=== PATIENT | female | born 1945 | race Caucasian/White ===

== ENCOUNTER 2022-09-17 15:25 | Inpatient (IN) | payer OTHER, MEDICAID ==
[~2022-09-17] VITALS: Ht 170.2 cm; Wt 111.6 kg
[2022-09-17 15:33] VITALS: BP_SYST 120; PULSE 71; RESP 18; TEMP 101.4; O2SAT 94
[2022-09-17 15:53] LABS: BILIRUBIN,URINE NEGATIVE (NEGATIVE); BLOOD, URINE 3+ (NEGATIVE); CLARITY/URINE CLEAR (CLEAR); COLOR,URINE YELLOW (YELLOW); GLUCOSE,URINE NEGATIVE (NEGATIVE); KETONES,URINE NEGATIVE (NEGATIVE); LEUKOCYTE ESTERASE ,URINE TRACE (NEGATIVE); NITRITE, URINE POSITIVE (NEGATIVE); PROTEIN URINE TRACE (NEGATIVE); UROBILINOGEN,URINE 0.2 (0.2-1.0)
[2022-09-17] MEDS ORDERED: ZINC100T2 PO (15:59)
[2022-09-17] MEDS ORDERED: NEU300 PO (15:59)
[2022-09-17] MEDS ORDERED: DOCU-144 PO (15:59)
[2022-09-17] MEDS ORDERED: POLY17PO4 PO (15:59)
[2022-09-17] MEDS ORDERED: PERC10 PO ×2 (15:59)
[2022-09-17] MEDS ORDERED: LACT1TAB14 PO (15:59)
[2022-09-17] MEDS ORDERED: MELO-89 PO (15:59)
[2022-09-17] MEDS ORDERED: BISACODYL SUPP PR (15:59)
[2022-09-17] MEDS ORDERED: CYAN100010 PO (15:59)
[2022-09-17] MEDS ORDERED: ACET325T PO (15:59)
[2022-09-17] MEDS ORDERED: FERR236T3 PO (15:59)
[2022-09-17] MEDS ORDERED: FURO-150 PO (15:59)
[2022-09-17] MEDS ORDERED: ANT30 PO (15:59)
[2022-09-17] MEDS ORDERED: CYCL10TA24 PO (15:59)
[2022-09-17] MEDS ORDERED: VOLTAREN GEL TP (15:59)
[2022-09-17] MEDS ORDERED: ASCO500T20 PO (15:59)
[2022-09-17] MEDS ORDERED: POTA-197 PO (15:59)
[2022-09-17] MEDS ORDERED: IMAT400T7 PO (15:59)
[2022-09-17] MEDS ORDERED: DULCOLAX SUPP PR (15:59)
[2022-09-17] MEDS ORDERED: MOM PO (15:59)
[2022-09-17] MEDS ORDERED: LORA-258 PO (15:59)
[2022-09-17] MEDS ORDERED: MORP30TA59 PO (15:59)
[2022-09-17] MEDS ORDERED: ASPI-1393 PO (15:59)
[2022-09-17] MEDS ORDERED: TRAZ-250 PO (15:59)
[2022-09-17] MEDS ORDERED: DULO60CA42 PO (15:59)
[2022-09-17] MEDS ORDERED: METH85CR31 TP (15:59)
[2022-09-17] MEDS ORDERED: DRON400T PO (15:59)
[2022-09-17] MEDS ORDERED: LOPE2CAP PO (15:59)
[2022-09-17 16:05] LABS: BACTERIA,URINE MODERATE /HPF (None Seen); MUCUS,URINE None Seen /LPF (None Seen); RBC,URINE 20-50 /HPF (0-3)
[2022-09-17 16:39] LABS: BASOPHILS % (AUTO) 0.2 % (0.0-2.0); EOSINOPHILS % (AUTO) 0.1 % (0.0-4.0); HEMATOCRIT 31.3 % (36-48); HEMOGLOBIN 10.2 g/dL (12.0-16.0); LYMPHOCYTES # (AUTO) 0.6 K/uL (1.0-5.5); LYMPHOCYTES % (AUTO) 4.6 % (20.5-51.5); MEAN CORPUSCULAR HEMOGLOBIN 29 pg (27-31); MEAN CORPUSCULAR HGB CONC 33 % (32-36); MEAN CORPUSCULAR VOLUME 90 fL (79.0-98.0); MONOCYTES # (AUTO) 0.6 K/uL (0.0-1.0); MONOCYTES % (AUTO) 4.8 % (1.7-9.3); NEUTROPHILS # (AUTO) 10.9 K/uL (1.8-7.7); NEUTROPHILS % (AUTO) 90.3 % (40.0-70.0); PLATELET COUNT (AUTO) 209 K/uL (130-430); RED BLOOD CELL COUNT(AUTO) 3.49 MIL/uL (4.2-6.2); WHITE BLOOD COUNT (AUTO) 12.1 K/uL (4.8-10.8)
[2022-09-17 16:46] LABS: INR 1.1 (0.8-1.2); PROTHROMBIN TIME 10.9 SECS (9.5-12.5)
[2022-09-17 16:53] LABS: ALANINE AMINOTRANSFERASE 9 U/L (12-78); ALBUMIN 2.9 g/dL (3.4-4.8); AMYLASE 9 U/L (0-100); ANION GAP 8 (5-15); ASPARTATE AMINOTRANSFERASE 19 U/L (10-37); C-REACTIVE PROTEIN QUANT 8.9 mg/dL (0-0.5); CALCIUM 8.8 mg/dL (8.4-11.0); CHLORIDE 103 mmol/L (98-107); CREATININE 0.69 mg/dL (0.55-1.30); GLUCOSE 110 mg/dL (70-99); LIPASE 26 U/L (73-393); TOTAL BILIRUBIN 0.4 mg/dL (0.0-1.0); UREA NITROGEN, BLOOD 18 mg/dL (8-21)
[2022-09-17] MEDS ORDERED: cefTRIAXone 1 GM in LIDOCAINE 1%, 20 ML MDV 2.1 ML IM ONE (17:30)
[2022-09-17] MEDS ORDERED: D5/0.45 NS 1,000 ML IV ONE (18:15)
[2022-09-17 21:51] VITALS: BP_SYST 138; PULSE 88; RESP 18; TEMP 99.2
[2022-09-17] MEDS ORDERED: MILK OF MAGNESIA 30 ML UDC PO PRN (22:45)
[2022-09-17] MEDS ORDERED: DULCOLAX PR PRN (22:45)
[2022-09-17] MEDS ORDERED: LOPERAMIDE HCL 2 MG CAPSULE PO PRN (22:45)
[2022-09-17] MEDS ORDERED: VOLTAREN TP PRN (22:45)
[2022-09-17] MEDS ORDERED: BISACODYL 10 MG/SUPPOSITORY RC PRN (22:45)
[2022-09-17] MEDS ORDERED: MAG-AL HYDROX/SIMETH 30 ML UDC PO PRN (22:45)
[2022-09-17] MEDS ORDERED: LORazepam 1 MG TABLET PO PRN (22:45)
[2022-09-18] VITALS (8 sets, daily range): BP systolic 99–144; PULSE 82–87; RESP 16–20; TEMP 97–99.4; O2SAT 92–99
[2022-09-18] MEDS ORDERED: IMATINIB MESYLATE 400 MG PO SCH ×2 (09:00)
[2022-09-18] MEDS ORDERED: ONDANSETRON HCL 4 MG/2 ML VIAL IVP PRN (11:00)
[2022-09-18] MEDS ORDERED: LORazepam 2 MG/ML VIAL IVP PRN (11:00)
[2022-09-18] MEDS: DRONEDARONE HYDROCHLORIDE 400 MG TABLET PO SCH (11:14)
[2022-09-18] MEDS: POLYETHYLENE GLYCOL 3350, 17 GM/ POWD.PACK PO SCH (11:14)
[2022-09-18] MEDS: ASCORBIC ACID 500 MG TABLET PO SCH ×2 (11:15→20:50)
[2022-09-18] MEDS: FERROUS SULFATE 325 MG TABLET.DR PO SCH (11:15)
[2022-09-18] MEDS: LACTOBACILLUS RHAMNOSUS GG 1 CAP CAPSULE PO SCH (11:15)
[2022-09-18] MEDS: FUROSEMIDE 20 MG TABLET PO SCH (11:16)
[2022-09-18] MEDS: ASPIRIN 81 MG TABLET(ECOTRIN) PO SCH (11:17)
[2022-09-18] MEDS: MELOXICAM 7.5 MG TABLET PO SCH (11:17)
[2022-09-18] MEDS: CYCLOBENZAPRINE HCL 10 MG TABLET (FLEXERIL) PO SCH (11:18)
[2022-09-18] MEDS: DOCUSATE SODIUM 100 MG CAPSULE PO SCH (11:18)
[2022-09-18] MEDS: GABAPENTIN 300 MG CAPSULE PO SCH ×3 (11:19→20:50)
[2022-09-18] MEDS: POTASSIUM CHLORIDE 20 MEQ TAB.PRT.SR PO SCH (11:19)
[2022-09-18] MEDS: CYANOCOBALAMIN (VITAMIN B-12) 1,000 MCG TABLET PO SCH (11:19)
[2022-09-18] MEDS: cefTRIAXone 1 GM IVPB PREMIX 50 ML IV SCH (11:25)
[2022-09-18] MEDS: MORPHINE SULFATE 30 MG Immediate Release TABLET PO PRN ×2 (11:29→20:51)
[2022-09-18] MEDS: OXYCODONE/ACETAMINOPHEN *10*mg/325 mg TABLET PO PRN (15:31)
[2022-09-18] MEDS: NORMAL SALINE 5 ML DISP.SYRIN IVF SCH ×2 (15:37→20:52)
[2022-09-18] MEDS: traZODone HCL 50 MG TABLET (DESYREL) PO SCH (20:50)
[2022-09-18] MEDS: DULoxetine HCL 30 MG CAPSULE.DR (CYMBALTA) PO SCH (20:50)
[2022-09-19] VITALS (7 sets, daily range): BP systolic 92–141; PULSE 74–101; RESP 16–18; TEMP 96.4–98.6; O2SAT 95–96
[2022-09-19 06:54] LABS: BASOPHILS % (AUTO) 0.1 % (0.0-2.0); EOSINOPHILS # (AUTO) 0.1 K/uL (0.0-0.4); EOSINOPHILS % (AUTO) 0.8 % (0.0-4.0); HEMATOCRIT 26.3 % (36-48); HEMOGLOBIN 8.6 g/dL (12.0-16.0); LYMPHOCYTES # (AUTO) 0.8 K/uL (1.0-5.5); LYMPHOCYTES % (AUTO) 9.7 % (20.5-51.5); MEAN CORPUSCULAR HEMOGLOBIN 29 pg (27-31); MEAN CORPUSCULAR HGB CONC 33 % (32-36); MEAN CORPUSCULAR VOLUME 89 fL (79.0-98.0); MONOCYTES # (AUTO) 0.7 K/uL (0.0-1.0); NEUTROPHILS # (AUTO) 6.7 K/uL (1.8-7.7); NEUTROPHILS % (AUTO) 81.4 % (40.0-70.0); PLATELET COUNT (AUTO) 172 K/uL (130-430); RED BLOOD CELL COUNT(AUTO) 2.97 MIL/uL (4.2-6.2); RED CELL DISTRIBUTION WIDTH 16.2 % (9.0-15.0); WHITE BLOOD COUNT (AUTO) 8.3 K/uL (4.8-10.8)
[2022-09-19] MEDS: NORMAL SALINE 5 ML DISP.SYRIN IVF SCH ×2 (07:20→13:40)
[2022-09-19 07:22] LABS: ANION GAP 5 (5-15); C-REACTIVE PROTEIN QUANT 7.8 mg/dL (0-0.5); CALCIUM 7.8 mg/dL (8.4-11.0); CHLORIDE 100 mmol/L (98-107); CREATININE 0.57 mg/dL (0.55-1.30); GLUCOSE 96 mg/dL (70-99); UREA NITROGEN, BLOOD 14 mg/dL (8-21)
[2022-09-19 07:57] LABS: ERYTHROCYTE SEDIMENTATION RATE 27 MM/HR (0-20)
[2022-09-19] MEDS: MORPHINE SULFATE 30 MG Immediate Release TABLET PO PRN ×2 (08:43→16:54)
[2022-09-19] MEDS: POLYETHYLENE GLYCOL 3350, 17 GM/ POWD.PACK PO SCH (09:00)
[2022-09-19] MEDS: DOCUSATE SODIUM 100 MG CAPSULE PO SCH (09:00)
[2022-09-19] MEDS: ASCORBIC ACID 500 MG TABLET PO SCH ×2 (09:37→22:57)
[2022-09-19] MEDS: LACTOBACILLUS RHAMNOSUS GG 1 CAP CAPSULE PO SCH (09:37)
[2022-09-19] MEDS: FUROSEMIDE 20 MG TABLET PO SCH (09:38)
[2022-09-19] MEDS: CYANOCOBALAMIN (VITAMIN B-12) 1,000 MCG TABLET PO SCH (09:38)
[2022-09-19] MEDS: MELOXICAM 7.5 MG TABLET PO SCH (09:38)
[2022-09-19] MEDS: FERROUS SULFATE 325 MG TABLET.DR PO SCH (09:39)
[2022-09-19] MEDS: CYCLOBENZAPRINE HCL 10 MG TABLET (FLEXERIL) PO SCH (09:39)
[2022-09-19] MEDS: POTASSIUM CHLORIDE 20 MEQ TAB.PRT.SR PO SCH (09:39)
[2022-09-19] MEDS: ASPIRIN 81 MG TABLET(ECOTRIN) PO SCH (09:40)
[2022-09-19] MEDS: DRONEDARONE HYDROCHLORIDE 400 MG TABLET PO SCH (09:41)
[2022-09-19] MEDS ORDERED: IMATINIB MESYLATE 400 MG PO ONE (11:00)
[2022-09-19] MEDS: GABAPENTIN 300 MG CAPSULE PO SCH ×3 (11:50→22:57)
[2022-09-19] MEDS: IMATINIB MESYLATE 400 MG PO SCH (11:51)
[2022-09-19] MEDS: cefTRIAXone 1 GM IVPB PREMIX 50 ML IV SCH (11:52)
[2022-09-19] MEDS: CEFTAZIDIME 1 GM in D5W 50 ML IV SCH ×2 (13:38→22:58)
[2022-09-19] MEDS: VANCOMYCIN HCL 750 MG in NS 250 ML IV SCH (15:45)
[2022-09-19] MEDS: DULoxetine HCL 30 MG CAPSULE.DR (CYMBALTA) PO SCH (22:59)
[2022-09-19] MEDS: traZODone HCL 50 MG TABLET (DESYREL) PO SCH (22:59)
[2022-09-19] MEDS: OXYCODONE/ACETAMINOPHEN *10*mg/325 mg TABLET PO PRN (23:01)
[2022-09-20] VITALS: BP_SYST 107; PULSE 75; RESP 18; TEMP 98.1; O2SAT 93
[2022-09-20] MEDS: VANCOMYCIN HCL 750 MG in NS 250 ML IV SCH ×2 (02:37→14:33)
[2022-09-20] MEDS: NORMAL SALINE 5 ML DISP.SYRIN IVF SCH ×4 (02:37→21:48)
[2022-09-20 05:14] LABS: BASOPHILS % (AUTO) 0.4 % (0.0-2.0); EOSINOPHILS # (AUTO) 0.2 K/uL (0.0-0.4); EOSINOPHILS % (AUTO) 2.7 % (0.0-4.0); HEMATOCRIT 24.9 % (36-48); HEMOGLOBIN 8.3 g/dL (12.0-16.0); LYMPHOCYTES # (AUTO) 1.2 K/uL (1.0-5.5); LYMPHOCYTES % (AUTO) 16.6 % (20.5-51.5); MEAN CORPUSCULAR HEMOGLOBIN 29 pg (27-31); MEAN CORPUSCULAR HGB CONC 33 % (32-36); MEAN CORPUSCULAR VOLUME 89 fL (79.0-98.0); MONOCYTES # (AUTO) 0.8 K/uL (0.0-1.0); MONOCYTES % (AUTO) 10.1 % (1.7-9.3); NEUTROPHILS # (AUTO) 5.3 K/uL (1.8-7.7); NEUTROPHILS % (AUTO) 70.2 % (40.0-70.0); PLATELET COUNT (AUTO) 200 K/uL (130-430); RED BLOOD CELL COUNT(AUTO) 2.81 MIL/uL (4.2-6.2); RED CELL DISTRIBUTION WIDTH 16.5 % (9.0-15.0); WHITE BLOOD COUNT (AUTO) 7.5 K/uL (4.8-10.8)
[2022-09-20 05:46] LABS: ALANINE AMINOTRANSFERASE 14 U/L (12-78); ALBUMIN 2.3 g/dL (3.4-4.8); ANION GAP 3 (5-15); ASPARTATE AMINOTRANSFERASE 19 U/L (10-37); C-REACTIVE PROTEIN QUANT 7.5 mg/dL (0-0.5); CALCIUM 7.9 mg/dL (8.4-11.0); CHLORIDE 100 mmol/L (98-107); GLUCOSE 92 mg/dL (70-99); TOTAL BILIRUBIN 0.3 mg/dL (0.0-1.0); UREA NITROGEN, BLOOD 19 mg/dL (8-21)
[2022-09-20] MEDS: CEFTAZIDIME 1 GM in D5W 50 ML IV SCH ×3 (06:26→21:44)
[2022-09-20 06:55] LABS: ERYTHROCYTE SEDIMENTATION RATE 13 MM/HR (0-20)
[2022-09-20 08:00] VITALS: BP_SYST 127; PULSE 79; RESP 18; TEMP 96.8; O2SAT 94
[2022-09-20] MEDS: DRONEDARONE HYDROCHLORIDE 400 MG TABLET PO SCH (09:00)
[2022-09-20] MEDS: GABAPENTIN 300 MG CAPSULE PO SCH ×3 (09:27→20:32)
[2022-09-20] MEDS: ASPIRIN 81 MG TABLET(ECOTRIN) PO SCH (09:28)
[2022-09-20] MEDS: POTASSIUM CHLORIDE 20 MEQ TAB.PRT.SR PO SCH (09:28)
[2022-09-20] MEDS: MELOXICAM 7.5 MG TABLET PO SCH (09:28)
[2022-09-20] MEDS: CYANOCOBALAMIN (VITAMIN B-12) 1,000 MCG TABLET PO SCH (09:28)
[2022-09-20] MEDS: POLYETHYLENE GLYCOL 3350, 17 GM/ POWD.PACK PO SCH (09:29)
[2022-09-20] MEDS: ASCORBIC ACID 500 MG TABLET PO SCH ×2 (09:29→20:33)
[2022-09-20] MEDS: FUROSEMIDE 20 MG TABLET PO SCH (09:29)
[2022-09-20] MEDS: LACTOBACILLUS RHAMNOSUS GG 1 CAP CAPSULE PO SCH (09:29)
[2022-09-20] MEDS: DOCUSATE SODIUM 100 MG CAPSULE PO SCH (09:29)
[2022-09-20] MEDS: FERROUS SULFATE 325 MG TABLET.DR PO SCH (09:29)
[2022-09-20] MEDS: CYCLOBENZAPRINE HCL 10 MG TABLET (FLEXERIL) PO SCH (09:31)
[2022-09-20 11:27] VITALS: BP_SYST 108; PULSE 77; RESP 16; TEMP 96.3; O2SAT 93
[2022-09-20 15:28] VITALS: BP_SYST 110; PULSE 69; RESP 15; TEMP 97.7; O2SAT 94
[2022-09-20 20:30] VITALS: BP_SYST 116; PULSE 82; RESP 20; TEMP 97.7; O2SAT 95
[2022-09-20] MEDS: MORPHINE SULFATE 30 MG Immediate Release TABLET PO PRN (20:30)
[2022-09-20] MEDS: traZODone HCL 50 MG TABLET (DESYREL) PO SCH (20:31)
[2022-09-20] MEDS: DULoxetine HCL 30 MG CAPSULE.DR (CYMBALTA) PO SCH (20:33)
[2022-09-20 21:00] VITALS: O2SAT 95
[2022-09-21 02:32] VITALS: BP_SYST 136; PULSE 80; RESP 18; TEMP 97; O2SAT 94
[2022-09-21] MEDS: VANCOMYCIN HCL 750 MG in NS 250 ML IV SCH (02:44)
[2022-09-21] MEDS: MORPHINE SULFATE 30 MG Immediate Release TABLET PO PRN (04:25)
[2022-09-21] MEDS: CEFTAZIDIME 1 GM in D5W 50 ML IV SCH ×2 (05:06→15:31)
[2022-09-21 05:29] LABS: BASOPHILS % (AUTO) 0.4 % (0.0-2.0); EOSINOPHILS # (AUTO) 0.2 K/uL (0.0-0.4); EOSINOPHILS % (AUTO) 3.5 % (0.0-4.0); HEMATOCRIT 25.9 % (36-48); HEMOGLOBIN 8.6 g/dL (12.0-16.0); LYMPHOCYTES # (AUTO) 1.1 K/uL (1.0-5.5); LYMPHOCYTES % (AUTO) 18.6 % (20.5-51.5); MEAN CORPUSCULAR HEMOGLOBIN 29 pg (27-31); MEAN CORPUSCULAR HGB CONC 33 % (32-36); MEAN CORPUSCULAR VOLUME 88 fL (79.0-98.0); MONOCYTES # (AUTO) 0.4 K/uL (0.0-1.0); MONOCYTES % (AUTO) 7.6 % (1.7-9.3); NEUTROPHILS # (AUTO) 4.1 K/uL (1.8-7.7); NEUTROPHILS % (AUTO) 69.9 % (40.0-70.0); PLATELET COUNT (AUTO) 209 K/uL (130-430); RED BLOOD CELL COUNT(AUTO) 2.95 MIL/uL (4.2-6.2); RED CELL DISTRIBUTION WIDTH 16.1 % (9.0-15.0); WHITE BLOOD COUNT (AUTO) 5.8 K/uL (4.8-10.8)
[2022-09-21 05:35] LABS: ANION GAP 3 (5-15); C-REACTIVE PROTEIN QUANT 5.1 mg/dL (0-0.5); CHLORIDE 102 mmol/L (98-107); CREATININE 0.62 mg/dL (0.55-1.30); GLUCOSE 94 mg/dL (70-99); UREA NITROGEN, BLOOD 15 mg/dL (8-21)
[2022-09-21] MEDS: NORMAL SALINE 5 ML DISP.SYRIN IVF SCH ×2 (05:42→15:31)
[2022-09-21 07:25] LABS: ERYTHROCYTE SEDIMENTATION RATE 24 MM/HR (0-20)
[2022-09-21] MEDS: POLYETHYLENE GLYCOL 3350, 17 GM/ POWD.PACK PO SCH (09:00)
[2022-09-21] MEDS: DOCUSATE SODIUM 100 MG CAPSULE PO SCH (09:00)
[2022-09-21 09:17] VITALS: BP_SYST 138; PULSE 75; RESP 16; TEMP 96.8; O2SAT 97
[2022-09-21] MEDS: FUROSEMIDE 20 MG TABLET PO SCH (10:43)
[2022-09-21] MEDS: ASCORBIC ACID 500 MG TABLET PO SCH (10:44)
[2022-09-21] MEDS: CYCLOBENZAPRINE HCL 10 MG TABLET (FLEXERIL) PO SCH (10:44)
[2022-09-21] MEDS: FERROUS SULFATE 325 MG TABLET.DR PO SCH (10:44)
[2022-09-21] MEDS: CYANOCOBALAMIN (VITAMIN B-12) 1,000 MCG TABLET PO SCH (10:45)
[2022-09-21] MEDS: GABAPENTIN 300 MG CAPSULE PO SCH (10:45)
[2022-09-21] MEDS: ASPIRIN 81 MG TABLET(ECOTRIN) PO SCH (10:45)
[2022-09-21] MEDS: POTASSIUM CHLORIDE 20 MEQ TAB.PRT.SR PO SCH (10:45)
[2022-09-21] MEDS: LACTOBACILLUS RHAMNOSUS GG 1 CAP CAPSULE PO SCH (10:45)
[2022-09-21] MEDS: DRONEDARONE HYDROCHLORIDE 400 MG TABLET PO SCH (11:16)
[2022-09-21] MEDS: MELOXICAM 7.5 MG TABLET PO SCH (11:17)
[2022-09-21] MEDS: OXYCODONE/ACETAMINOPHEN *10*mg/325 mg TABLET PO PRN (11:18)
[2022-09-21] MEDS: IMATINIB MESYLATE 400 MG PO SCH (11:19)
[2022-09-21 12:00] VITALS: BP_SYST 137; PULSE 78; RESP 17; TEMP 96.9; O2SAT 96
[2022-09-21] MEDS ORDERED: CIPR500T5 PO (12:09)
[2022-09-21 16:20] VITALS: BP_SYST 130; PULSE 78; RESP 16; TEMP 96.9; O2SAT 96
== END 2022-09-21 16:30 | DRG 871 ==
LOC: SED 15:25 → STU 20:00 → SMU 09-18 12:10
PROVIDERS: ADMIT Preventive Medicine Preventive Medicine/Occupational Environmental Medicine; ATTEND Preventive Medicine Preventive Medicine/Occupational Environmental Medicine
DX: A41.9 Sepsis, unspecified organism (principal); E43 Unspecified severe protein-calorie malnutrition; N39.0 Urinary tract infection, site not specified; B96.20 Unspecified Escherichia coli [E. coli] as the cause of diseases classified elsewhere; B96.5 Pseudomonas (aeruginosa) (mallei) (pseudomallei) as the cause of diseases classified elsewhere; E83.51 Hypocalcemia; M79.7 Fibromyalgia; G89.4 Chronic pain syndrome; I73.9 Peripheral vascular disease, unspecified; I10 Essential (primary) hypertension; D64.9 Anemia, unspecified; E66.01 Morbid (severe) obesity due to excess calories; Z20.822 Contact with and (suspected) exposure to COVID-19; E88.09 Other disorders of plasma-protein metabolism, not elsewhere classified; I87.2 Venous insufficiency (chronic) (peripheral); Z88.2 Allergy status to sulfonamides; Z88.8 Allergy status to other drugs, medicaments and biological substances; Z79.899 Other long term (current) drug therapy; Z86.14 Personal history of Methicillin resistant Staphylococcus aureus infection; Z68.38 Body mass index [BMI] 38.0-38.9, adult; Z90.49 Acquired absence of other specified parts of digestive tract
CPT/HCPCS: 36415; 71045; 80048; 80053; 81000; 82150; 83605; 83690; 85025; 85610-TC; 85651-TC; 85730-TC; 86140; 87040; 87081; 87086; 87186-TC; 93005; 96365; 97110-GP; 97530-GP; 99285; G0378; J0696; J0713; J2001; J2274; J7050; J7060